=== PATIENT | male | born 1995 | race Caucasian/White ===

== ENCOUNTER 2017-01-22 18:11 | Emergency (ER) | payer OTHER ==
[~2017-01-22] VITALS: Wt 75.0 kg
[2017-01-22] MEDS ORDERED: ALBUTEROL 0.083% (NEB) 2.5 MG/3 ML AMP HHN STA (20:27)
--- NOTE | 2017-01-22 20:47 | ERA ---
ER Documentation Chief Complaint Date/Time DATE: 01/22/17 TIME: 20:47 Chief Complaint CHEST CONGESTION X 2 WEEKS HPI 21-year-old male presenting with a chief complaint of cough 2 weeks. Patient also describes mild chest congestion and wheezing. Patient has had these symptoms multiple times over the past 2 years. Has not been given any other diagnoses besides acute bronchitis. Has not taken any medications to relieve the symptoms. States antibiotics at work sometimes. Patient denies fever, sweats, chills, rigors, hemoptysis, breathlessness, chest pain, recent unintentional weight loss, drug use, meningismus, pharyngitis, change in voice. Vaccination status is up to date. No recent travel. Nursing notes have been reviewed and are consistent with history given. ROS All systems reviewed and are negative except as per history of present illness. Medications Home Meds Active Scripts Azithromycin* (Zithromax*) 250 Mg Tablet, 250 MG PO .ZPACK DIRECTED, #6 TAB TAKE 500 MG (2 TABS) THE FIRST DAY THEN 250 MG (1 TAB) DAYS 2-5 Prov:XIOMARA LOGAN PA-C 01/22/17 Allergies Allergies: Coded Allergies: Penicillins (Verified Allergy, Unknown, 01/22/17) PMhx/Soc Medical and Surgical Hx: pt denies Medical Hx, pt denies Surgical Hx History of Surgery: No Hx Alcohol Use: Yes (OCCASIONALLY) Hx Substance Use: No Smoking Status: Never smoker Physical Exam Vitals Vital Signs Date Time Temp Pulse Resp B/P Pulse Ox O2 Delivery O2 Flow Rate FiO2 01/22/17 20:42 87 18 97 21 01/22/17 18:16 98.0 65 18 126/69 99 Physical Exam Const: Healthy-appearing. Well-nourished. Well-developed. No acute distress. Pulm: Moderate wheezing in all left lung castaneda. Mild wheezing in all right lung castaneda. No stridor, tripoding or drooling. Neck: No cervical lymphadenopathy, masses or goiter palpated. Trachea midline. Supple ~ No meningismus. Auscultation reviled good air movement and no bruits. Nose: Normal nose without discharge, septal deviation, or sinus tenderness. Cardio: Regular rate and rhythm; No murmurs, gallops or rubs auscultated. No JVD grossly observed. Radial and posterior tibial pulses 2+ bilaterally. No cyanosis. Capillary refill less than 2 seconds. Oral: No oral edema visualized. Mucous membranes moist and pink. Head: Normocephalic, Atraumatic. Eyes: Non-injected; No scleral erythema, discharge or foreign body. EOMI and AYE bilaterally. Ears: Normal External Ears, EACs clear, TM normal bilaterally without erythema. Abd: Soft, non tender, non distended. No guarding, masses. Normal bowel sounds. No McBurney's point tenderness. MS: Normal motor strength, normal tone with gross examination. Skin: No petechiae or rashes. No ulcer, induration, jaundice. Good turgor. Back: No midline, flank or CVA tenderness. Ext: No cyanosis, edema or palpable cord. Normal movement of all extremities grossly observed. Neur: Awake, alert and oriented x3. Neurovascularly intact bilaterally. Psych: Normal Mood and Affect. Results 24 hrs Current Medications Medications (Trade) Dose Ordered Sig/Jahaira Route PRN Reason Start Time Stop Time Status Last Admin Dose Admin Albuterol (Proventil 0.083% (Neb)) 5 mg ONCE STAT HHN 01/22/17 20:27 01/22/17 20:29 DC 01/22/17 20:38 Procedures/MDM Otherwise healthy 19-year-old male with no significant past medical history presents with a chief complaint of bronchitis type symptoms 2 weeks. Patient has had these symptoms multiple times over the past 2 years. States that he has had wheezing. Chest x-ray was obtained, read by the radiologist, given the following impression: Unremarkable. Patient was given breathing treatment with albuterol 5mg. Symptoms improved. Patient's most likely diagnosis is acute bronchitis versus acute asthma versus unspecified upper respiratory infection. I recommended outpatient follow-up with PCP. I have no suspicion for pneumonia , serious bacterial infection, or other airway obstructive pathologies. I have spoke with the patient regarding their condition and future management. They have verbally responded that they understand their status and treatment plan. The patients vitals are stable, and their current condition is appropriate for discharge. The patient will be given discharge instructions with return precautions. Patient will be prescribed azithromycin Z-David due to duration of symptoms. Departure Diagnosis: Primary Impression: Upper respiratory infection Qualified Code: J06.9 - Viral upper respiratory tract infection Condition: Stable Additional Instructions: Follow up with your PCP within the next 1-3 days for a more thorough evaluation and a possible referral to a specialist. Return the the emergency department immediately if symptoms worsen or change. If you have any questions regarding medications, ask your pharmacist or us before you leave. If any adverse reactions occur while taking your medications, discontinue the treatment and return to the emergency department immediately. Take your medications as directed, and complete the entire course of treatment. XIOMARA LOGAN PA-C Jan 22, 2017 20:47
--- NOTE | 2017-01-22 21:22 | RADRPT ---
PROCEDURE: XR Chest. CLINICAL INDICATION: Cough. TECHNIQUE: Single frontal view. COMPARISON: None. FINDINGS: The lungs are clear. The heart size is normal. There is no pleural effusion. There is no pneumothorax. IMPRESSION: 1. Normal chest radiograph. RPTAT: QQ .Jonathan Cortez MD, Date Time Electronically viewed and signed by .Jonathan Cortez MD, on 01/22/2017 21:22 .R/
[2017-01-22] MEDS ORDERED: AZIT250T94 PO (21:26)
== END 2017-01-22 21:38 | disposition home or self-care (01) ==
LOC: FTE 18:11
DX: J06.9 Acute upper respiratory infection, unspecified (principal)
CPT/HCPCS: 71010; 94664; Z7502; Z7610